=== PATIENT | female | born 1955 | race Two or more races ===

== ENCOUNTER 2021-11-12 08:20 | Outpatient (CLI) | payer OTHER | END 2021-11-12 08:21 | disposition home or self-care (01) | LOC: NUCLEAR 08:20 | PROVIDERS: ATTEND Internal Medicine Cardiovascular Disease | DX: I20.1 Angina pectoris with documented spasm (principal) ==

== ENCOUNTER 2021-11-12 09:02 | Outpatient (CLI) | payer OTHER | END 2021-11-12 09:03 | disposition home or self-care (01) | LOC: LAB 09:02 | PROVIDERS: ATTEND Internal Medicine | DX: U07.1 COVID-19 (principal); B34.1 Enterovirus infection, unspecified ==